=== PATIENT | male | born 1970 | race African-American/Black ===

== ENCOUNTER 2020-01-14 11:44 | Emergency (ER) | payer OTHER ==
[~2020-01-14] VITALS: Ht 172.7 cm; Wt 126.4 kg
[2020-01-14 11:46] VITALS: Ht 172.7 cm; Wt 126.4 kg
[2020-01-14] MEDS ORDERED: BAYER CHEWABLE81 MG PO (11:55)
[2020-01-14] MEDS ORDERED: HYDROCODON-ACE1 EAC7 PO (11:56)
[2020-01-14] MEDS ORDERED: CYCLOBENZAPRINE5 MG PO (11:57)
[2020-01-14] MEDS ORDERED: PRAVACHOL40 MG PO (11:57)
[2020-01-14] MEDS ORDERED: GABAPENTIN300 MG PO (11:59)
[2020-01-14] MEDS ORDERED: NORVASC5 MG PO (11:59)
[2020-01-14] MEDS ORDERED: METOPROLOL TART50 MG PO (11:59)
[2020-01-14] MEDS ORDERED: HCTZ25 MG PO (12:00)
[2020-01-14] MEDS ORDERED: COZAAR50 MG PO (12:01)
[2020-01-14] MEDS ORDERED: GLUCOPHAGE500 MG PO (12:02)
[2020-01-14 12:13] LABS: BASOPHILS 0.6 % (0-2); EOSINOPHILS 2.3 % (0-7); HEMATOCRIT 44.3 % (42.0-54.0); HEMOGLOBIN 15.2 g/dL (13.5-17.5); IMMATURE GRANULOCYTES 0.2 % (0-5); LYMPHOCYTES 36.6 % (15-50); MCH 29.6 pg (26.0-34.0); MCHC 34.3 g/dL (31.0-37.0); MCV 86.4 fL (80.0-100.0); MEAN PLATELET VOLUME 11.2 fL (7.4-10.4); MONOCYTES 10.1 % (2-11); NEUTROPHILS 50.2 % (40-80); PLATELET COUNT 259 10x3/uL (130-400); RBC 5.13 10x6/uL (4.20-6.10); RDW 13.7 % (11.5-14.5); WBC 4.9 10x3/uL (4.8-10.8)
[2020-01-14 12:22] LABS: CALC OSMOLALITY 282 mosm/kg (275-300); CALCIUM 9.5 mg/dL (8.5-10.1); CHLORIDE - SERUM 105 mmol/L (98-107); CREATININE - SERUM 0.8 mg/dL (0.6-1.3); GLUCOSE 95 mg/dL (74-106); POTASSIUM - SERUM 3.2 mmol/L (3.5-5.1); SODIUM 141 mmol/L (136-145); UREA NITROGEN 18 mg/dL (7-18); eGFR NON AFRICAN AMERICAN > 90 mL/min (90-120)
[2020-01-14 12:26] LABS: APTT 30.4 SECONDS (22.8-39.4); INR 1.01 (0.85-1.17); PROTIME 13.2 SECONDS (11.6-15.0)
[2020-01-14 12:37] LABS: ALBUMIN 4.2 g/dL (3.4-5.0); ALKALINE PHOSPHATASE 76 U/L (30-120); ALT (SGPT) 28 U/L (10-68); BILIRUBIN - TOTAL 0.51 mg/dL (0.2-1.3); CKMB 1.6 U/L (0.0-3.6); CREATINE KINASE 224 UL (21-232); MAGNESIUM - SERUM 1.9 mg/dL (1.8-2.4); PROTEIN - SERUM 8.1 g/dL (6.4-8.2)
[2020-01-14 12:41] LABS: TROPONIN-I < 0.017 ng/mL (0.000-0.060)
[2020-01-14 15:14] VITALS: BP 131/77
== END 2020-01-14 15:25 | disposition home or self-care (01) ==
LOC: D.ER 11:44
PROVIDERS: Family Medicine
DX: R07.9 Chest pain, unspecified (principal); E11.9 Type 2 diabetes mellitus without complications; E66.9 Obesity, unspecified; I10 Essential (primary) hypertension; Z79.84 Long term (current) use of oral hypoglycemic drugs